=== PATIENT | female | born 1990 | race Caucasian/White ===

== ENCOUNTER 2018-04-03 23:19 | Emergency (ER) | payer SELFPAY ==
[~2018-04-03] VITALS: Ht 170.2 cm; Wt 94.3 kg
[2018-04-03 23:30] VITALS: Ht 170.2 cm; Wt 94.3 kg
[2018-04-03 23:58] LABS: microscopic required? NO
[2018-04-04 00:03] LABS: UA SPECIFIC GRAVITY 1.015 (1.005-1.035); urine erythrocyte NEGATIVE (NEGATIVE)
[2018-04-04 00:35] VITALS: BP 122/64
== END 2018-04-04 00:35 | disposition home or self-care (01) ==
LOC: ED 23:19
PROVIDERS: Emergency Medicine
DX: R10.31 Right lower quadrant pain (principal); R19.7 Diarrhea, unspecified
CPT/HCPCS: 87491; 87591; J1885